=== PATIENT | male | born 1995 | race Caucasian/White ===

== ENCOUNTER 2017-03-24 00:54 | Observation (INO) | payer OTHER ==
[~2017-03-24] VITALS: Ht 172.7 cm; Wt 79.1 kg
[2017-03-24] VITALS (15 sets, daily range): BP systolic 88–159; BP diastolic 48–81
--- NOTE | 2017-03-24 01:27 | Emergency Room Report ---
History of Present Illness Time Seen by MD Park Presenting Problem in Triage Pt arrived:Walked Presenting Problem:WAS SEEN [facility] GISEL SAW PATIENT AND INFORMED PT HE SHOULD BE ADMITTED. 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 N Clinical Suspician of Infection? N Mental Status: 1 - Regular (Normal Baseline) Sepsis Risk:Low Sepsis Risk Have you (or family members/close friends) recently traveled outside the [place]? N If Yes, where/when: Have you had exposure to infectious disease within the past month? N TB? Other? Specify: Comment The patient was seen here earlier [facility] for possible appendicitis. He had 2 CT scans suggesting a possible appendicitis of the tip of the appendix. He was seen in the emergency room by Dr. Lockett, surgeon military source operations officer. Admission was recommended, but the patient declined. He was advised to return in the morning for repeat evaluation, sooner if worsening. He has now returned because he is having increasing pain and had an episode of vomiting. He also has some chills. ALLERGIES Coded Allergies: No Known Allergies (03/23/17) Home Medications Reported Medications No Known Home Medications History Medical History General CAD? No Angina: No ME: No Hypertension? No Hyperlipidemia? No CHF? No DVT? No PE? No COPD? No Asthma? No Anemia? No GERD? No Gastric ulcers? No GI Bleed? No Hernia? No Thyroid Problems? No Hypothyroidism? No CVA? No Seizures? No Diabetes? No Renal Insuffiency? Yes End Stage Renal Disease? No UTI? Yes Stones? No BPH? No GB Disease: No Nephritic Syndrome? No Asplenia? No Hepatitis? Yes Sickle Cell Disease? No Arthritis? No Migraines? No Cataracts? No Glaucoma? No MRSA? No HIV? No TB? No Anxiety? No Depression? No Cancer? No More? No Immunization Hx DT/Tetanus 1-4 Years Ago Surgical Hx Previous Surgery?Y RIGHT LOWER LEG RIGHT HAND Social History Smoking Hx Smoker: Current Every Day Smoker Tobacco: Yes Type Cigarettes Packs/day 1 1/2 - 2 Packs Alcohol Alcohol: No Review of Systems All Other Systems Reviewed and Negative Constitutional chills Gastrointestinal abdominal pain, vomiting Physical Exam Vital Signs Vital Signs Date Time Temp Pulse Resp B/P Pulse O2 O2 Flow FiO2 Ox Delivery Rate 03/24 0153 98.8 115 16 137/71 99 03/24 0137 115 16 137/71 99 03/24 0134 16 03/24 0057 98.8 124 16 159/81 99 General Appearance normal appearance, WD/WN Eye Exam - bilateral eye normal exam, bilateral eye PERRL, bilateral eye EOMI Ear, Nose, Throat hearing grossly normal, normal ENT inspection Neck normal inspection, non-tender, supple, full range of motion Respiratory Status Yes: trachea midline, chest symmetrical, non tender chest. No: respiratory distress. Lung Sounds bilateral: normal breath sounds, lungs clear. Cardiovascular normal exam, regular rate/rhythm, no peripheral edema, no gallop, no JVD, no murmur, no rub, normal peripheral pulses Peripheral Pulses Pulses normal Yes Gastrointestinal soft, no organomegaly, guarding, rebound, right-sided abdominal tenderness, the point of maximal tenderness is RIGHT lower quadrant over McBurney's point. Extremities non-tender, normal range of motion, normal inspection Neurologic alert, electrical development engineer II-XII nml as tested, normal exam, oriented x 3 Mental status normal mood/affect Skin intact, normal color, warm/dry Medical Decision Making LABS/Meds/Orders Pt receiving controlled substance in ED? Yes Nick was queried for this patient? No Reason not queried - emergent pt cond=no time Results/Orders Laboratory Tests 03/24/17 0115: WBC 15.6 H, RBC 5.08, Hgb 15.8, Hct 46.9, MCV 92.3, RDW 12.8, Plt Count 236, MPV 6.6 L, Gran % 85.2 H, Gran # 13.3 H, Lymphocytes % 10.0, Monocytes % 2.6, Eosinophils % 2.0, Basophils % 0.3, Lymphocytes # 1.6, Monocytes # 0.4, Eosinophils # 0.3, Basophils # 0.0, PUBS MCHC 33.6, MCH 31.0 Current Medication Orders Sig/Remberto Start time Last Medication Dose Route Stop Time Status Admin Morphine Sulfate 2 MG Q2HP PRN 03/24 0145 UNV IV Nicotine 21 MG DAILYP PRN 03/24 0145 UNV TD Ondansetron HCl 4 MG Q6HP PRN 03/24 0145 UNV IV Sodium Chloride 1,000 ML .Q6H40M 03/24 0145 UNV 03/24 IV 0222 Sodium Chloride 10 ML PRN PRN 03/24 0145 UNV IV Morphine Sulfate 0 .STK-MED ONE 03/24 0132 DC .ROUTE Morphine Sulfate 4 MG ONCE ONE 03/24 0130 DC 03/24 IV 03/24 0131 0134 Ondansetron HCl 4 MG ONCE ONE 03/24 0115 DC 03/24 IV 03/24 0116 0116 Sodium Chloride 1,000 ML .Q6H40M 03/24 0115 AC 03/24 IV 03/24 1304 0116 Sodium Chloride 10 ML PRN PRN 03/24 0115 AC 03/24 IV 03/25 0104 0117 Ondansetron HCl 0 .STK-MED ONE 03/24 0104 DC .ROUTE Sodium Chloride 1,000 ML .STK-MED ONE 03/24 0103 DC IV Orders Procedure Date/time Status DIET-NOTHING BY MOUTH 03/24 B Active Decision to admit 03/24 133 Active IV SALINE LOCK 03/24 010 Active CBC WITH AUTO DIFF 03/24 102 Complete ADMIT PATIENT 03/24 UNK Active VITAL SIGNS 03/24 UNK Active POM NURSE PARAMJIT HOSE ORDER 03/24 UNK Active IV SALINE LOCK 03/24 UNK Active CODE STATUS 03/24 UNK Active PATIENT ACTIVITY ORDER 03/24 UNK Active Progress - 1:30 AM: I have discussed the case with Dr. Lockett who agrees to admit the patient to the hospital. We discussed the patient's clinical information, including history, exam, laboratory and radiology results and ED course. Per hospital procedure, I will write temporary bridge inpatient orders on the patient. Specific orders requested by the admitting physician: ISMAEL RAPHAEL. He will see patient about 7 am. Departure Departure Disposition Still a Patient Clinical Impression Primary Impression: Acute appendicitis Qualifiers: Acute appendicitis type: with localized peritonitis Qualified Code: K35.3 - Acute appendicitis with localized peritonitis Condition STABLE Prescriptions Current Visit Scripts No Known Home Medications ED Critical Care Critical Care No at 0408
--- NOTE | 2017-03-24 01:27 | Emergency Room Report ---
History of Present Illness Time Seen by MD Park Presenting Problem in Triage Pt arrived:Walked Presenting Problem:[facility] GISEL SAW PATIENT AND INFORMED PT HE SHOULD BE ADMITTED. 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 N Clinical Suspician of Infection? N Mental Status: 1 - Regular (Normal Baseline) Sepsis Risk:Low Sepsis Risk Have you (or family members/close friends) recently traveled outside the [place]? N If Yes, where/when: Have you had exposure to infectious disease within the past month? N TB? Other? Specify: Comment The patient was seen here earlier [facility] for possible appendicitis. He had 2 CT scans suggesting a possible appendicitis of the tip of the appendix. He was seen in the emergency room by Dr. Lockett, surgeon mission manager. Admission was recommended, but the patient declined. He was advised to return in the morning for repeat evaluation, sooner if worsening. He has now returned because he is having increasing pain and had an episode of vomiting. He also has some chills. ALLERGIES Coded Allergies: No Known Allergies (03/23/17) Home Medications Reported Medications No Known Home Medications History Medical History General CAD? No Angina: No NM: No Hypertension? No Hyperlipidemia? No CHF? No DVT? No PE? No COPD? No Asthma? No Anemia? No GERD? No Gastric ulcers? No GI Bleed? No Hernia? No Thyroid Problems? No Hypothyroidism? No CVA? No Seizures? No Diabetes? No Renal Insuffiency? Yes End Stage Renal Disease? No UTI? Yes Stones? No BPH? No GB Disease: No Nephritic Syndrome? No Asplenia? No Hepatitis? Yes Sickle Cell Disease? No Arthritis? No Migraines? No Cataracts? No Glaucoma? No MRSA? No HIV? No TB? No Anxiety? No Depression? No Cancer? No More? No Immunization Hx DT/Tetanus 1-4 Years Ago Surgical Hx Previous Surgery?Y RIGHT LOWER LEG RIGHT HAND Social History Smoking Hx Smoker: Current Every Day Smoker Tobacco: Yes Type Cigarettes Packs/day 1 1/2 - 2 Packs Alcohol Alcohol: No Review of Systems All Other Systems Reviewed and Negative Constitutional chills Gastrointestinal abdominal pain, vomiting Physical Exam Vital Signs Vital Signs Date Time Temp Pulse Resp B/P Pulse O2 O2 Flow FiO2 Ox Delivery Rate 03/24 0153 98.8 115 16 137/71 99 03/24 0137 115 16 137/71 99 03/24 0134 16 03/24 0057 98.8 124 16 159/81 99 General Appearance normal appearance, WD/WN Eye Exam - bilateral eye normal exam, bilateral eye PERRL, bilateral eye EOMI Ear, Nose, Throat hearing grossly normal, normal ENT inspection Neck normal inspection, non-tender, supple, full range of motion Respiratory Status Yes: trachea midline, chest symmetrical, non tender chest. No: respiratory distress. Lung Sounds bilateral: normal breath sounds, lungs clear. Cardiovascular normal exam, regular rate/rhythm, no peripheral edema, no gallop, no JVD, no murmur, no rub, normal peripheral pulses Peripheral Pulses Pulses normal Yes Gastrointestinal soft, no organomegaly, guarding, rebound, right-sided abdominal tenderness, the point of maximal tenderness is RIGHT lower quadrant over McBurney's point. Extremities non-tender, normal range of motion, normal inspection Neurologic alert, steel erector II-XII nml as tested, normal exam, oriented x 3 Mental status normal mood/affect Skin intact, normal color, warm/dry Medical Decision Making LABS/Meds/Orders Pt receiving controlled substance in ED? Yes Nick was queried for this patient? No Reason not queried - emergent pt cond=no time Results/Orders Laboratory Tests 03/24/17 0115: WBC 15.6 H, RBC 5.08, Hgb 15.8, Hct 46.9, MCV 92.3, RDW 12.8, Plt Count 236, MPV 6.6 L, Gran % 85.2 H, Gran # 13.3 H, Lymphocytes % 10.0, Monocytes % 2.6, Eosinophils % 2.0, Basophils % 0.3, Lymphocytes # 1.6, Monocytes # 0.4, Eosinophils # 0.3, Basophils # 0.0, PUBS MCHC 33.6, MCH 31.0 Current Medication Orders Sig/Remberto Start time Last Medication Dose Route Stop Time Status Admin Morphine Sulfate 2 MG Q2HP PRN 03/24 0145 UNV IV Nicotine 21 MG DAILYP PRN 03/24 0145 UNV TD Ondansetron HCl 4 MG Q6HP PRN 03/24 0145 UNV IV Sodium Chloride 1,000 ML .Q6H40M 03/24 0145 UNV 03/24 IV 0222 Sodium Chloride 10 ML PRN PRN 03/24 0145 UNV IV Morphine Sulfate 0 .STK-MED ONE 03/24 0132 DC .ROUTE Morphine Sulfate 4 MG ONCE ONE 03/24 0130 DC 03/24 IV 03/24 0131 0134 Ondansetron HCl 4 MG ONCE ONE 03/24 0115 DC 03/24 IV 03/24 0116 0116 Sodium Chloride 1,000 ML .Q6H40M 03/24 0115 AC 03/24 IV 03/24 1304 0116 Sodium Chloride 10 ML PRN PRN 03/24 0115 AC 03/24 IV 03/25 0104 0117 Ondansetron HCl 0 .STK-MED ONE 03/24 0104 DC .ROUTE Sodium Chloride 1,000 ML .STK-MED ONE 03/24 0103 DC IV Orders Procedure Date/time Status DIET-NOTHING BY MOUTH 03/24 B Active Decision to admit 03/24 133 Active IV SALINE LOCK 03/24 010 Active CBC WITH AUTO DIFF 03/24 102 Complete ADMIT PATIENT 03/24 UNK Active VITAL SIGNS 03/24 UNK Active POM NURSE PARAMJIT HOSE ORDER 03/24 UNK Active IV SALINE LOCK 03/24 UNK Active CODE STATUS 03/24 UNK Active PATIENT ACTIVITY ORDER 03/24 UNK Active Progress - 1:30 AM: I have discussed the case with Dr. Lockett who agrees to admit the patient to the hospital. We discussed the patient's clinical information, including history, exam, laboratory and radiology results and ED course. Per hospital procedure, I will write temporary bridge inpatient orders on the patient. Specific orders requested by the admitting physician: ISMAEL RAPHAEL. He will see patient about 7 am. Departure Departure Disposition Still a Patient Clinical Impression Primary Impression: Acute appendicitis Qualifiers: Acute appendicitis type: with localized peritonitis Qualified Code: K35.3 - Acute appendicitis with localized peritonitis Condition STABLE Prescriptions Current Visit Scripts No Known Home Medications ED Critical Care Critical Care No at 0402
[2017-03-24 01:30] LABS: HEMOGLOBIN 15.8 g/dL (14.1-18.0); LYMPH # 1.6 K/mm3 (0.7-4.5)
--- NOTE | 2017-03-24 06:54 | HISTORY AND PHYSICAL REPORT ---
History of Present Illness Chief Complaint: Abdominal pain History of Present Illness: Patient is a 21-year-old white male. He yesterday morning about 7 AM he developed RIGHT flank pain reading into the RIGHT testicle. This hadn't somewhat concerned and in the afternoon yesterday on 03/23/17 he presented to the emergency department. He did have a mild leukocytosis. He underwent non-contrast CT scan of the abdomen and pelvis which revealed no evidence of appendicitis but appendix was difficult to identify. He therefore underwent contrast CT scan which revealed no definitive evidence of appendicitis but tip appendicitis cannot be excluded. He was evaluated as a surgical consultation. Recommendations were made for admission for observation however the patient declined to return if worsening overnight and agreed to definitely return the following morning even if improvement for reevaluation. However, he developed progressive more severe RIGHT lower quadrant pain and presented to the emergency department in the very late evening of 03/23/17. Past Medical History Denies: asthma. Surgical History Previous Surgery?Y RIGHT LOWER LEG RIGHT HAND Allergies Coded Allergies: No Known Allergies (03/23/17) Medications: Reported Medications No Known Home Medications Smoking Hx Tobacco: Yes Smoker: Current Every Day Smoker Type: Cigarettes Packs/day: 1 1/2 - 2 Packs Are you/the child exposed to second-hand smoke: Yes Alcohol Alcohol: No Hx of Drug Use Drug Use? No Review of Systems Constitutional No: chills. Skin No: bruising. Immune/allergy No: anaphalaxis. Eyes No: vision loss. ENT No: hearing loss. Respiratory No: shortness of air. Cardiovascular No: chest pain. GI Positive for: abdomen. (male) No: hematuria. Musculoskeletal No: joint pain. Heme No: bleeding. Endocrine No: polydipsia. Neurological No: change in LOC. Physical Exam Exam General appearance no acute distress Respiratory clear to auscultation Cardiovascular normal heart sounds Abdomen soft Findings/Data On examination the patient appears much more uncomfortable than last night. He has significantly more pain with tenderness and findings of focal peritonitis in the RIGHT lower quadrant which is clearly different and progressive from previous examination Dx/assessment/plan Problem List 1. Acute appendicitis Code status: full code Plan: Plan for urgent appendectomy this morning. Plan for laparoscopic with possible open procedure. at 0608
--- NOTE | 2017-03-24 08:35 | Operative Note ---
Surgeon/Diagnoses Surgeon/Director Of Digital Technology(s) Date of procedure: 03/24/17 Surgeon: Gregor Lockett Director Of Digital Technology(s): Same Diagnoses Pre-op diagnosis: Acute appendicitis Post-op diagnosis Same Procedure Procedure Procedure: Laparoscopic appendectomy Indications: VALDO TEIXEIRA is a 21 year-old Male with a history of pain. Yesterday morning on 03/23/17 he developed RIGHT flank pain radiating into the testicular area. He presented to the emergency department in the late afternoon of 03/23/17. CT scan without contrast was nondiagnostic. He underwent CT scan of the abdomen and pelvis with contrast. This remained equivocal. Surgical consultation was obtained. Examination and presentation were somewhat equivocal. It was recommended the patient be admitted for inpatient management however he declined with instructions clearly to return if his symptoms worsened and regardless to return for reevaluation the following morning. Several hours later his symptoms had worsened with increasing pain and tenderness in the RIGHT lower quadrant and he resented to the emergency department which time he was admitted. Plan was made for appendectomy. Findings: He had somewhat of a suppurative inflamed appendix mostly at the tip of the appendix. The appendix was somewhat buried almost like an intussusception within the cecum. Procedure Description: Consent was obtained and patient was taken to the operating room. He was given preoperative intravenous antibiotics. Gen. anesthesia was induced via endotracheal tube. Key catheter was placed for bladder decompression. Abdomen was prepped and draped in the standard surgical fashion. Subumbilical skin incision was made and while performing abdominal wall lifted the Veress needle was inserted. CO2 pneumoperitoneum was achieved to 15 mmHg. 5 mm trocar was inserted in the suprapubic location and an additional 5 mm trochars inserted in the RIGHT upper abdomen. He was positioned in Trendelenburg LEFT side down. There was some suppurative exudate around the tip of the cecum. Closure was achieved to sweeping the ileum medially. There was some indurated tissue. Ultimately was determined that this was the tip of the appendix and this was grasped. It almost had the resemblance that the appendix had intussuscepted into the cecum. It was able to be delivered and ultimately dissected free. The appendiceal artery was carefully coagulated with Marcelo ultrasonic harmonic kyra and divided. Dissection was carried down to the appendiceal base with some difficulty. The appendix was divided at its with an endoscopic RAMÍREZ linear cutting type stapling device. Appendix was placed within an Endo Catch retrieval device and removed from the peritoneal cavity via the umbilical trocar site. Staple line was inspected for integrity and hemostasis which was assured. Limited interrogation was performed in the pericecal location and pelvis. There was good hemostasis. Trochars were removed as CO2 pneumoperitoneum was evacuated. Fascia at the umbilicus was closed with a 0 Vicryl suture. Local anesthetic was infiltrated into all incisions. Skin incisions were closed with 4 -0 Monocryl in a subcuticular fashion. Steri-Strips and dressings were applied. EBL (ml): 25 Anesthesia: GETA Specimens: Appendix Disposition Disposition: Extubated to PACU at 0834
--- NOTE | 2017-03-24 08:43 | Anesthesia Record ---
Anesthesia Record Part I Total IV fluids: 900 EBL (ml): 50 Urine Output: 300 B/P: 118/68 % SaO2: 96 Pulse: 123 Resps: 24 Temp: 98.3 Patient is: Drowsy, Nasal O2, Stable Stable to PACU at: 0833 at 0843
--- NOTE | 2017-03-24 08:44 | Anesthesia Record ---
Anesthesia Record Part II Discharge time: 902 Destination: Second Floor PACU nurse assessment review? Yes Patient is: Awake, Stable Anesthesia complications? No at 0843
--- NOTE | 2017-03-24 10:59 | POST-OP PROGRESS NOTE ---
Post op subjective data Subjective data: VALDO TEIXEIRA is a 21 M . He is status post post op day # . His wound is healing well without signs symptoms of infection.He reports his last pain level as 0 on a 0-10 pain scale. Patient tolerating some clears without difficulty. Had some minor hematuria with initial void which resolved. Shortly after arriving to floor patient requested going outside. Post op assessment findings Assessment Exam General appearance: normal appearance, alert ABD: soft Comment: Some serosanguineous drainage on umbilical dressing. Post op patient plan Plan: Ambulate, Antibiotics This inpt stay is expected to cross 2 MNs from start of care No Additional data: Changed steri-strips and dressing at umbilical site. Will continue antibiotics perioperatively for now. Possible DC home this afternoon or in the morning. at 1059
--- NOTE | 2017-03-24 11:03 | PHARMACY CLINIC NOTE ---
Patient Demographics Patient Demographics Admission date: 03/24/17 Date: 03/24/17 Allergies Coded Allergies: No Known Allergies (03/24/17) HEIGHT- FT: 5 IN: 8.00 K.068 VTE General Information Labs: Laboratory Tests 03/24 0115 Hematology Hgb (14.1 - 18.0 g/dL) 15.8 Hct (42.0 - 52.0 %) 46.9 Plt Count (142 - 424 K/mm3) 236 Disclaimer The following section includes nursing documentation that has been pulled in for pharmacy review. Patient's VTE score: 2 Patient's VTE Risk: VERY LOW RISK Clinical trial participant? No VTE prophylaxis [id number] VTE prophylaxis ordered? Yes Type of prophylaxis/treatment: PARAMJIT at 4909
[2017-03-24 12:04] LABS: URINE BILIRUBIN - DIPSTICK NEGATIVE (NEG); URINE BLOOD NEGATIVE (NEG)
[2017-03-24 12:13] LABS: URINE SQUAMOUS CELLS OCC #/hpf (OCC)
--- NOTE | 2017-03-25 11:09 | DISCHARGE SUMMARY STANDARD ---
Demographics Admit date: 03/24/17 Discharge date: 03/24/17 History of present illness History of present illness Patient is a 21-year-old white male. In the morning of 03/23/17 about 7 AM he developed RIGHT flank pain radiating into the RIGHT testicle. This had him somewhat concerned and in the afternoon on 03/23/17 he presented to the emergency department. He did have a mild leukocytosis. He underwent CT scan of the abdomen and pelvis without any contrast whatsoever which revealed no evidence of appendicitis but appendix was difficult to identify. He therefore underwent contrast CT scan with which revealed no definitive evidence of appendicitis but tip appendicitis cannot be excluded. He was evaluated as a surgical consultation in the ER. Since his radiographic findings and clinical examination were somewhat equivocal for appendicitis recommendations were made for admission for observation however the patient declined admission. Instructions were given to return if worsening overnight and he agreed to definitely return the following morning even if improvement for reevaluation. However, he developed progressive more severe RIGHT lower quadrant pain and presented to the emergency department in the very primary counselor of 03/24/17. Hospital Course Hospital Course: Patient was admitted with presumed developing appendicitis due to progressively more severe tenderness in the RIGHT lower quadrant. Several hours after admission the patient was taken to the operating room at which time he underwent laparoscopic appendectomy. He was found to have an acutely inflamed appendix which was somewhat buried within the cecum. Please see operative dictation for complete details. Patient was given Unasyn preoperatively and this was continued postoperatively. Very shortly after admission to the floor patient was requesting being able to go outside allegedly to smoke. He was advised against this. He was given full liquid diet. Patient was observed for several hours and given additional postoperative antibiotics. He did quite well and arrangements were made for discharge home several hours after appendectomy. Discharge diagnoses Problem List 1. Acute appendicitis Medications Medications: Discharge meds are as noted. Patient is given a new prescription for Lortab 5 mg (#16) for pain. Follow up Follow up in office in: 2 WEEKS with: Gregor Lockett MD at 1111
--- OUTSIDE RECORDS SUMMARY | 2017-04-02 19:25 | External Medical Summary Rpt ---
Author Author , Organization [employer] Address Unknown Phone Unavailable Purpose Continuity of Care Document - through 2016 Problems Code Diagnosis DOS Provider Status D72.829 ELEVATED WHITE BLOOD CELL COUNT, UNSPECIFIED K35.80 UNSPECIFIED ACUTE APPENDICITI S R10.31 RIGHT LOWER QUADRANT PAIN R93.5 ABN FINDINGS ON DX IMAGING OF [facility] [employer] RETROPERITO N
--- OUTSIDE RECORDS SUMMARY | 2017-04-02 19:25 | External Medical Summary Rpt ---
Demographics Preferred Language Kuwaiti Marital Status Unknown Spiritism Affiliation Unknown Race Unknown Ethnic Group Unknown Author Author , Organization [employer] Address Unknown Phone Unavailable Purpose Continuity of Care Document - through 2016 Immunization No patient found.
--- OUTSIDE RECORDS SUMMARY | 2017-04-02 19:25 | External Medical Summary Rpt ---
Demographics Preferred Language Lao Marital Status Unknown Islam Affiliation Unknown Race Unknown Ethnic Group Unknown Author Author , Organization [facility] Address Unknown Phone Unavailable Purpose Continuity of Care Document - through 2016 Immunization No patient found.
--- OUTSIDE RECORDS SUMMARY | 2017-04-02 19:26 | External Medical Summary Rpt ---
Author Author [employer] [employer], [employer] Organization [employer] Address Unknown Phone Unavailable Results CBC W Auto Differential panel in Blood Observa Value Referen Units Interpr Notes Date tion ce etation Range Basophils 0 - 0.2 K/MM3 Normal No March 24 informati 2016 1:15 [#/volume on in AM ] in source Blood by data Automated count Basophils 0.1 - 2.0 % Normal No March 24 informati 2016 1:15 leukocyte on in AM s in source Blood by data Automated count Eosinophi 0.0 - 0.4 K/mm3 Normal No March 24 ls informati 2016 1:15 [#/volume on in AM ] in source Blood by data Automated count Eosinophi 0.1 - % Normal No March 24 ls/100 12.0 informati 2016 1:15 leukocyte on in AM s in source Blood by data Automated count Granulocy 1.3 - 8.0 K/mm3 High No March 24 ron informati 2016 1:15 [#/volume on in AM ] in source Blood by data Automated count Granulocy 37.0 - % High No March 24 ron/100 80.0 informati 2016 1:15 leukocyte on in AM s in source Blood by data Automated count Hematocri 42.0 - % Normal No March 24 t [Volume 52.0 informati 2016 1:15 on in AM Fraction] source of Blood data Hemoglobi 14.1 - g/dL Normal No March 24 n 18.0 informati 2016 1:15 [Mass/vol on in AM ume] in source Blood data Lymphocyt 0.7 - 4.5 K/mm3 Normal No March 24 es informati 2016 1:15 [#/volume on in AM ] in source Unspecifi data ed specimen by Automated count Lymphocyt 10 - 50 % Normal No March 24 es informati 2016 1:15 [#/volume on in AM ] in source Unspecifi data ed specimen by Automated count Erythrocy 27 - 31.2 pg Normal No March 24 te mean informati 2016 1:15 corpuscul on in AM ar source hemoglobi data n [Entitic mass] Erythrocy 31.8 - g/dl Normal No March 24 te mean 35.4 informati 2016 1:15 corpuscul on in AM ar source hemoglobi data n concentra tion [Mass/vol ume] by Automated count Erythrocy 82.2 - fl Normal No March 24 te mean 97.8 informati 2016 1:15 corpuscul on in AM ar volume source [Entitic data volume] by Automated count Monocytes 0.1 - 1.0 K/mm3 Normal No March 24 informati 2016 1:15 [#/volume on in AM ] in source Blood by data Automated count Monocytes 1.7 - 9.3 % Normal No March 24 / informati 2016 1:15 leukocyte on in AM s in source Blood by data Automated count Platelet 7.4 - fl Low No March 24 mean 10.4 informati 2016 1:15 volume on in AM [Entitic source volume] data in Blood by Automated count Platelets 142 - 424 K/mm3 Normal No March 24 informati 2016 1:15 [#/volume on in AM ] in source Blood data Erythrocy 4.6 - 6.2 M/mm3 Normal No March 24 ron informati 2016 1:15 [#/volume on in AM ] in source Amniotic data fluid Erythrocy 11.5 - % Normal No March 24 te 17.5 informati 2016 1:15 distribut on in AM ion width source [Entitic data volume] by Automated count Leukocyte 4.8 - K/MM3 High No March 24 s 10.8 informati 2016 1:15 [#/volume on in AM ] in source Blood data CBC W Auto Differential panel in Blood Observa Value Referen Units Interpr Notes Date tion ce etation Range Basophils 0 - 0.2 K/MM3 Normal No March 23 informati 2016 3:55 [#/volume on in PM ] in source Blood by data Automated count Basophils 0.1 - 2.0 % Normal No March 23 informati 2016 3:55 leukocyte on in PM s in source Blood by data Automated count Eosinophi 0.0 - 0.4 K/mm3 Normal No March 23 ls informati 2016 3:55 [#/volume on in PM ] in source Blood by data Automated count Eosinophi 0.1 - % Normal No March 23 ls/100 12.0 informati 2016 3:55 leukocyte on in PM s in source Blood by data Automated count Granulocy 1.3 - 8.0 K/mm3 High No March 23 ron informati 2016 3:55 [#/volume on in PM ] in source Blood by data Automated count Granulocy 37.0 - % High No March 23 ron/100 80.0 informati 2016 3:55 leukocyte on in PM s in source Blood by data Automated count Hematocri 42.0 - % Normal No March 23 t [Volume 52.0 informati 2016 3:55 on in PM Fraction] source of Blood data Hemoglobi 14.1 - g/dL Normal No March 23 n 18.0 informati 2016 3:55 [Mass/vol on in PM ume] in source Blood data Lymphocyt 0.7 - 4.5 K/mm3 Normal March 23 es informati 2016 3:55 [#/volume on in PM ] in source Unspecifi data ed specimen by Automated count Lymphocyt 10 - 50 % Low March 23 es informati 2016 3:55 [#/volume on in PM ] in source Unspecifi data ed specimen by Automated count Erythrocy 27 - 31.2 pg High No March 23 te mean informati 2016 3:55 corpuscul on in PM ar source hemoglobi data n [Entitic mass] Erythrocy 31.8 - g/dl Normal March 23 te mean 35.4 informati 2016 3:55 corpuscul on in PM ar source hemoglobi data n concentra tion [Mass/vol ume] by Automated count Erythrocy 82.2 - fl Normal March 23 te mean 97.8 informati 2016 3:55 corpuscul on in PM ar volume source [Entitic data volume] by Automated count Monocytes 0.1 - 1.0 K/mm3 Normal No March 23 informati 2016 3:55 [#/volume on in PM ] in source Blood by data Automated count Monocytes 1.7 - 9.3 % Normal No March 23 / informati 2016 3:55 leukocyte on in PM s in source Blood by data Automated count Platelet 7.4 - fl Low March 23 mean 10.4 informati 2016 3:55 volume on in PM [Entitic source volume] data in Blood by Automated count Platelets 142 - 424 K/mm3 Normal March 23 informati 2016 3:55 [#/volume on in PM ] in source Blood data Erythrocy 4.6 - 6.2 M/mm3 Normal No March 23 ron informati 2016 3:55 [#/volume on in PM ] in source Amniotic data fluid Erythrocy 11.5 - % Normal No March 23 te 17.5 informati 2016 3:55 distribut on in PM ion width source [Entitic data volume] by Automated count Leukocyte 4.8 - K/MM3 High No March 23 s 10.8 informati 2016 3:55 [#/volume on in PM ] in source Blood data Differential panel, method unspecified - Observa Value Referen Units Interpr Notes Date tion ce etation Range LYMPH 10 10 - 50 % Normal No March 23 inform2016 tion in 3:55 PM source data Monocytes 2 - 9 % Normal No March 23 /100 informati 2016 3:55 leukocyte on in PM s in source Blood by data Automated count Platele NORMAL No No No No March 23 ts informa informa informa informa 2016 [Presen tion in tion in tion in tion in 3:55 PM ce] in source source source source Blood data data data data by Light microsc opy Neutrophi 42 - 76 % High No March 23 ls ati 2016 3:55 [#/volume on in PM ] in source Blood by data Automated count Erythro NORMAL No No No No March 23 cyte informa informa informa informa 2016 morphol tion in tion in tion in tion in 3:55 PM ogy source source source source finding data data data data [Identi fier] in Blood Cells No #CELLS No No March 23 Counted informati informati informati 2016 3:55 Total [#] on in on in on in PM in Blood source source source data data data Comprehensive metabolic 2000 panel in Serum or Plasma Observa Value Referen Units Interpr Notes Date ti ce etation Range Albumin/G 1.1 - 1.8 No Normal No March 23 lobulin informati informati 2016 3:55 [Mass on in on in PM ratio] in source source Serum or data data Plasma Albumin 3.4 - 5.0 gm/dL Normal No March 23 [Mass/vol informati 2016 3:55 ume] in on in PM Serum or source Plasma data Alkaline 46 - 116 U/L Normal No March 23 phosphata informati 2016 3:55 se on in PM [Enzymati source c data activity/ volume] in Serum or Plasma Bilirubin 0.2 - 1.0 mg/dL Normal No March 23 .total informati 2016 3:55 [Mass/vol on in PM ume] in source Serum or data Plasma Urea 7 - 18 mg/dL Normal No March 23 nitrogen informati 2016 3:55 [Mass/vol on in PM ume] in source Serum or data Plasma Calcium 8.5 - mg/dL Normal No March 23 [Mass/vol 10.1 informati 2016 3:55 ume] in on in PM Serum or source Plasma data Chloride 98 - 107 mmoL/L Normal No March 23 [Moles/vo informati 2016 3:55 lume] in on in PM Serum or source Plasma data Carbon 21.0 - mmoL/L Normal No March 23 dioxide, 32.0 informati 2016 3:55 total on in PM [Moles/vo source lume] in data Serum or Plasma Creatinin 0.70 - mg/dL Normal No March 23 e 1.30 informati 2016 3:55 [Mass/vol on in PM ume] in source Serum or data Plasma Creatinin 50 - 200 ML/MIN Normal No March 23 e renal informati 2016 3:55 clearance on in PM source predicted data by Cockcroft -Gault formula Estimated >60 ML/MIN No REFERENCE March 23 informati RANGE: 2017 3:55 glomerula on in >60 PM r source ML/MIN/1. filtratio data 73 SQUARE n rate METERSIf (GF this patient is -A merican, then multiply theresult by 1.210. Globulin 1.3 - 3.2 gm/dL High No March 23 [Mass/vol informati 2016 3:55 ume] in on in PM Serum source data Glucose 74 - 106 mg/dL Normal No March 23 [Mass/vol informati 2016 3:55 ume] in on in PM Serum or source Plasma data Potassium 3.5 - 5.1 mmoL/L Normal No March 23 informati 2016 3:55 [Moles/vo on in PM lume] in source Serum or data Plasma Sodium 136 - 145 mmoL/L Normal No March 23 [Moles/vo informati 2016 3:55 lume] in on in PM Serum or source Plasma data Aspartate 15 - 37 U/L Normal No March 23 informati 2016 3:55 aminotran on in PM sferase source [Enzymati data c activity/ volume] in Serum or Plasma Alanine 12 - 78 U/L Normal No March 23 aminotran informati 2016 3:55 sferase on in PM [Enzymati source c data activity/ volume] in Serum or Plasma Protein 6.4 - 8.2 gm/dL High No March 23 [Mass/vol informati 2016 3:55 ume] in on in PM Serum or source Plasma data Chlamydia/GC Amplification Observa Value Referen Units Interpr Notes Date tion ce etation Range Chlamyd Positiv Negativ No Abnorma March 23 ia e e informa l 2017 trachom tion in 3:50 PM atis source rRNA data [Presen ce] in Unspeci fied specime n by Probe & target amplifi cation method Neisser Negativ Negativ No No Perform March 23 ia e e informa informa ed at: 2017 gonorrh tion in tion in CB - 3:50 PM oeae source source [facility] rRNA data data [Presen [place]6 ce] in [address], specime [place], [place] Probe & [id number] target 69Lab Directo amplifi r: cation Vincent method Kenneth cohen PhD, Phone: [phone] Urinalysis dipstick W Reflex Microscopic panel in Urine Observa Value Referen Units Interpr Notes Date tion ce etation Range Appeara CLEAR CLEAR No No No March 23 nce of informa informa informa 2016 Urine tion in tion in tion in 3:50 PM source source source data data data Bacteri 2+ O No No No March 23 a informa informa informa 2016 [Presen tion in tion in tion in 3:50 PM ce] in source source source Urine data data data sedimen t by Light microsc opy Bilirub NEGATIV NEG No No BILIRUB March 23 in E informa informa IN 2016 [Presen tion in tion in CONFIRM 3:50 PM ce] in source source ED WITH Urine data data by Test ICTOTES strip T Erythro NEGATIV NEG No No No March 23 cytes E informa informa informa 2016 [Presen tion in tion in tion in 3:50 PM ce] in source source source Urine data data data Color DK YELLOW No No No March 23 of YELLOW informa informa informa 2017 Urine tion in tion in tion in 3:50 PM source source source data data data Glucose NEG No No No March 23 [Mass/vol informati informati informati 2016 3:50 ume] in on in on in on in PM Urine by source source source Test data data data strip Ketones 2+ NEG mg/dL Abnorma No March 23 l inform2016 [Presen tion in 3:50 PM ce] in source Urine data by Automat ed test strip Mucus NEGATIV NEG No No No March 23 [Presen E informa informa informa 2016 ce] in tion in tion in tion in 3:50 PM Urine source source source sedimen data data data t by Light microsc opy Mucus 4+ NONE No No No March 23 [Pres informa informa informa 2016 ce] in tion in ti in ti in 3:50 PM Urine source source source sedimen data data data t by Light microsc opy Nitrite NEGATIV NEG No No No March 23 E informa informa informa 2016 [Presen ti in ti in ti in 3:50 PM ce] in source source source Urine data data data by Test strip pH of 5.0 - 8.5 No Normal No March 23 Urine informati informati 2016 3:50 on in on in PM source source data data Protein NEG mg/dL High No March 23 [Mass/vol informati 2016 3:50 ume] in on in PM Urine by source Automated data test strip Specific 1.005 - No Normal No March 23 gravity 1.030 informati informati 2016 3:50 of Urine on in on in PM source source data data Urobili 1.0 NEG E.U./dL No No March 23 nogen informa informa 2016 [Presen tion in tion in 3:50 PM ce] in source source Urine data data by Test strip Leukocyte O wbc/hpf No No March 23 s informati informati 2016 3:50 [#/volume on in on in PM ] in source source Urine data data Urinalysis dipstick W Reflex Microscopic panel in Urine Observa Value Referen Units Interpr Notes Date tion ce etation Range Appeara CLEAR CLEAR No No No March 23 nce of informa informa informa 2016 Urine tion in ti in tion in 3:50 PM source source source data data data Bilirub NEGATIV NEG No No BILIRUB March 23 in E informa informa IN 2016 [Presen tion in tion in CONFIRM 3:50 PM ce] in source source ED WITH Urine data data by Test ICTOTES strip T Erythro NEGATIV NEG No No No March 23 cytes E informa informa informa 2016 [Presen tion in tion in tion in 3:50 PM ce] in source source source Urine data data data Color DK YELLOW No No No March 23 of YELLOW informa informa informa 2016 Urine tion in tion in tion in 3:50 PM source source source data data data Glucose NEG No No No March 23 [Mass/vol informati informati informati 2016 3:50 ume] in on in on in on in PM Urine by source source source Test data data data strip Ketones 2+ NEG mg/dL Abnorma No March 23 l informa 2016 [Presen tion in 3:50 PM ce] in source Urine data by Automat ed test strip Mucus NEGATIV NEG No No No March 23 [Presen E informa informa informa 2016 ce] in tion in tion in tion in 3:50 PM Urine source source source sedimen data data data t by Light microsc opy Nitrite NEGATIV NEG No No No March 23 E informa informa informa 2016 [Presen tion in tion in tion in 3:50 PM ce] in source source source Urine data data data by Test strip pH of 5.0 - 8.5 No Normal No March 23 Urine informati informati 2016 3:50 on in on in PM source source data data Protein NEG mg/dL High No March 23 [Mass/vol informati 2016 3:50 ume] in on in PM Urine by source Automated data test strip Specific 1.005 - No Normal No March 23 gravity 1.030 informati informati 2016 3:50 of Urine on in on in PM source source data data Urobili 1.0 NEG E.U./dL No No March 23 nogen informa informa 2016 [Presen tion in tion in 3:50 PM ce] in source source Urine data data by Test strip Treponema pallidum IgG Ab [Presence] in Serum by Immunoassay Observa Value Referen Units Interpr Notes Date tion ce etation Range COLLECT NA No No No No Apr 15 OR informa informa informa informa 2016 tion in tion in tion in tion in 8:00 AM source source source source data data data data ETHNICI W No No No No Feb 15 TY informa informa informa informa 2016 tion in tion in tion in tion in 8:00 AM source source source source data data data data PURPOSE ROUTINE No No No No Feb 15 OF informa informa informa informa 2016 EXAM tion in tion in tion in tion in 8:00 AM source source source source data data data data SPECIME BLOOD No No No No Feb 15 N informa informa informa informa 2016 SOURCE tion in tion in tion in tion in 8:00 AM source source source source data data data data CHART [id number] No No No No Feb 17 NUMBER informa informa informa informa 2016 tion in tion in tion in tion in 8:00 AM source source source source data data data data Trepone NON-STEPHANIE No No No METHOD Feb [address] informa informa informa OF 2016 pallidu tion in tion in tion in ANALYSI 8:00 AM m IgG source source source S: Ab data data data EIANORM [Presen AL ce] in RANGE: Serum NON-STEPHANIE by CTIVE\. Immunoa br\This ssay report contain s patient informa tion that must be protect ed in accorda nce with the Health Insuran ce Portabi lity and Account ability Act. Treponema pallidum IgG Ab [Presence] in Serum by Immunoassay Observa Value Referen Units Interpr Notes Date tion ce etation Range COLLECT NA No No No No Feb 17 OR informa informa informa informa 2016 tion in tion in tion in tion in 8:00 AM source source source source data data data data ETHNICI W No No No No Feb 17 TY informa informa informa informa 2016 tion in tion in tion in tion in 8:00 AM source source source source data data data data PURPOSE ROUTINE No No No No Feb 15 OF informa informa informa informa 2016 EXAM tion in tion in tion in tion in 8:00 AM source source source source data data data data SPECIME BLOOD No No No No Feb 15 N informa informa informa informa 2016 SOURCE tion in tion in tion in tion in 8:00 AM source source source source data data data data CHART [id number] No No No No Feb 17 NUMBER [place] informa informa informa 2016 tion in tion in tion in tion in 8:00 AM source source source source data data data data Trepone Pending No No No \.br\Feb 17 ma informa informa informa is 2016 pallidu tion in tion in tion in report 8:00 AM m IgG source source source contain Ab data data data s [Presen patient ce] in Serum informa by tion Immunoa that ssay must be protect ed in accorda nce with the Health Insuran ce Portabi lity and Account ability Act. CT LOWER EXTREMITY wo CONTRAST Observa Value Referen Units Interpr Notes Date tion ce etation Range TEXT MARINELLI No No No No Jul 12 DI[facility]NOS [place] informa informa informa informa 2015 IS L tion in tion in tion in tion in 10:15 [facility] source source source source PM LHardin data data data data [facility] RADIOLO GY REPORTP atient: Eliza TEIXEIRA NDREW W Acct: #[id number] Report: #[id number] #: [id number] DOS: 5 2044INS [facility] ORDER #:[id number] 48LOCAT ION:ER : 993PROV IDERSAD MITTING : FAMILY: NONE,MD BACHIN G: MEVRIN PANDYA AD OTHER:D ICTATIN G: RUFINO NEWMAN MDCPT CODE:[id number] EXAM:LE WO - CT LOWER EXTREMI TY wo CONTRAS TREQ #:[id number] ASON FOR EXAM:RE ASON FOR VISIT: BROKEN LEG--HAWKINS RDIN--1 905 Sign ed *PROCED URE: CT LOWER EXTREMI TY W/O CONTRAS TCOMPAR TA: [facility]I [facility], CR, KNEE 3 VIEWS RT, 07/12/20 15, 19:31.I NDICATI ONS: RIGHT KNEE FRACTUR E. RIGHT KNEE PAINTEC HNIQUE: After obtaini ng the patient 's consent , multi-p lanar CT images of the extremi ty werecre ated without non-ion ic intrave nous contras t.FINDI NGS:The re is a split fractur e of the lateral tibial plateau without signifi cant depress ion. Thefrac ture is classif ied as a Schatzk er type I fractur e. There is associa george fractur e without signifi cant displac ement of the anterio r aspect and the central portion of the medial tibialp lateau. There is a nondisp laced fibular head fractur e.There is hemorrh age within the joint with a fat-flu id level seen in the suprapa tella bursa. Thepost erior cruciat e ligamen t is well seen and appears to be intact. The anterio r cruciat e ligamen tis more difficu lt to evaluat e given the associa george hemarth rosis. There does not appear to beentra pment of the lateral meniscu s tissue within the fractur e.CONCL USION:1 . 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 No convinc ing lateral menisca l tissue is seen within the fractur e.1.HENRY NEWMAN MDElect cheryl garcia Signed and Approve d By: RUFINO NEWMAN MD on 07/12/20 15 at 22:15Bo kathi Certifi ed Radiolo gist.Un til signed, this is an unconfi rmed prelimi nary report that may contain errors and is subject to change. SERKE:D : 2215 TIBIA FIBULA AP LAT RIGHT Observa Value Referen Units Interpr Notes Date tion ce etation Range TEXT MARINELLI No No No No Sep 7 DIAGNOS [place] informa informa informa informa 2014 IS L tion in tion in tion in tion in 8:14 PM [facility] source source source source ardin data data data data [facility] RADIOLO GY REPORTP atient: Eliza TEIXEIRA NDREW W Acct: #[id number] Report: #[id number] #: [id number] DOS: 5 1927INS URANCE: [facility] [place] ORDER #:RAD [id number] 23LOCAT ION:ER : 993PROV IDERSAD MITTING : FAMILY: NONE,MD DANIELS G: EMMA BENITEZ OTHER:D ICTATIN G: RUFINO NEWMAN MDCPT CODE:[id number] EXAM:LL ERT - TIBIA FIBULA AP LAT RIGHTRE Q #:[id number] ASON FOR EXAM: InjuryR ROSEMARIE FOR VISIT: BROKEN LEG--HAWKINS RDIN--1 905 Sign ed *PROCED URE: TIBIA FIBULA AP LAT RIGHTCO MPARISO N: None.IN DICATIO NS: HIT LEGS WITH ANOTHER PLAYER DURING VOLLEYB ALL COMPLAI NS OF SEVERE MEDIAL KNEE ANDLOWE R LEG PAINFIN DINGS:T here is a tibial plateau fractur e. Please see the dictati on for the right knee exam. There is noevide nce of fractur e of the distal aspect of the tibia or fibula. The appears to be a benignf ibrous cortica l defect of the posteri or aspect of the distal tibia.C ONCLUSI ON:1. Tibial plateau fractur e is best seen on the exam. Below the proxima l tibia and fibula there isno other acute abnorma lity.STANTON NEWMAN MDElect cheryl garcia Signed and Approve d By: RUFINO NEWMAN MD on 07/12/20 15 at 20:14Bo kathi Certifi ed Radiolo gist.Un til signed, this is an unconfi rmed prelimi nary report that may contain errors and is subject to change. VÍCTOR:D :2013 KNEE 3 VIEWS RIGHT Observa Value Referen Units Interpr Notes Date tion ce etation Range TEXT MARINELLI No No No No Sep 7 DI[facility]NOS [place] informa informa informa informa 2015 IS L tion in tion in tion in tion in 8:13 PM [facility] source source source source LHardin data data data data [facility] RADIOLO GY REPORTP atient: Eliza TEIXEIRA NDREW W Acct: #[id number] Report: #[id number] #: [id number] DOS: 5 1927INS URANCE: [facility] [place] ORDER #:RAD [id number] 22LOCAT ION:ER : 993PROV IDERSAD MITTING : FAMILY: NONE,MD DANIELS G: EMMA BENITEZ OTHER:Mindy MOORE G: RUFINO NEWMAN MDCPT CODE:[id number] EXAM:KN RT - KNEE 3 VIEWS RIGHTRE Q #:[id number] ASON FOR EXAM: InjuryR ROSEMARIE FOR VISIT: BROKEN LEG--HAWKINS RDIN--1 905 Sign ed *PROCED URE: KNEE 3 VIEWS RIGHTCO MPARISO N: None.IN DICATIO NS: HIT LEGS WITH ANOTHER PLAYER DURING VOLLEYB ALL COMPLAI NS OF SEVERE MEDIAL KNEE ANDLOWE R LEG PAINFIN DINGS:T here is an oblique fractur e extendi ng from the lateral tibial plateau to the medial aspect of thetibi a. There is also elevati on of the plateau system with displac ement. There is a comminu tedirre gular portion of the medial tibial plateau . There is a minimal ly displac ed fibular fractur e.There is a large fat fluid level in the suprapa tellar bursa space consist ent with hemarth rosis.C ONCLUSI ON:1. Comminu george tibial plateau fractur e involvi ng both the lateral and medial plateau as well as aminima lly displac ed fibular head fractur e and a large joint effusio n consist ent with hemarth rosis.K QAMAR NEWMAN MDElect ronical ly Signed and Approve d By: RUFINO NEWMAN MD on 07/12/20 15 at 20:13Bo kathi Certifi ed Radiolo gist.Un til signed, this is an unconfi rmed prelimi nary report that may contain errors and is subject to change. SERKE:D :2012 Urinalysis, Routine (w/micros) Observa Value Referen Units Interpr Notes Date tion ce etation Range Specifi 1.017 1.003 - No No No May 04 c 1.030 informa informa informa 2015 [place] tion in tion in tion in 5:08 PM URN source source source data data data pH 8.0 5.0 - No No No Shar 30 Urine 8.0 informa informa informa 2015 tion in tion in tion in 5:08 PM source source source data data data Protein NEGATIV NEGATIV No Normal No Shar 30 , Urine E E informa informa 2015 tion in tion in 5:08 PM source source data data Glucose NEGATIV NEGATIV No Normal No Shar 30 , Urine E E informa informa 2015 tion in tion in 5:08 PM source source data data Ketone, NEGATIV NEGATIV No Normal No Shar 30 Urine E E informa informa 2015 tion in tion in 5:08 PM source source data data Urobili 0.2 0.2 - Units No No Shar 30 nogen 1.0 informa informa 2015 Urine tion in tion in 5:08 PM source source data data Bilirub NEGATIV NEGATIV No Normal No Shar 30 in, E E informa informa 2015 Urine tion in tion in 5:08 PM source source data data Blood, NEGATIV NEGATIV No Normal No Shar 30 Urine E E informa informa 2015 tion in tion in 5:08 PM source source data data Nitrite NEGATIV NEGATIV No Normal No Shar 30 s Urine E E informa informa 2015 tion in tion in 5:08 PM source source data data Crystal NONE NONE No Normal No Shar 30 s Urine informa informa 2014 tion in tion in 5:08 PM source source data data WBC, 0-4 0 - 4 PERHPF Normal No Shar 30 Urine informa 2015 tion in 5:08 PM source data RBC, NONE NONE PERHPF Normal No Shar 30 Urine SEEN SEEN informa 2014 tion in 5:08 PM source data Cast, NONE 0 - 1 PERLPF Normal No Shar 30 RBC, SEEN informa 2014 Urine tion in 5:08 PM source data Cast, 0-4 0 - 4 PERLPF Normal No Shar 30 Hyaline informa 2014 , Urine tion in 5:08 PM source data Epithel NONE FEW No Normal No Shar 30 ial informa informa 2015 Cells, tion in tion in 5:08 PM Ur source source data data Cast, NONE 0 - 1 PERLPF Normal No Shar 30 Granula SEEN informa 2014 r, Urin tion in 5:08 PM source data Bacteri NONE FEW No Normal No Shar 30 a, informa informa 2015 Urine tion in tion in 5:08 PM source source data data Crystal NONE NONE No Normal No May 04 Amt. informa informa 2015 Urine tion in tion in 5:08 PM source source data data Leukocy NEGATIV NEGATIV No Normal No May 04 te E E informa informa 2015 Esteras tion in tion in 5:08 PM e source source data data Color YELLOW YELLOW, No Normal No May 04 STRAW, informa informa 2015 WILFRED tion in tion in 5:08 PM source source data data Charact TURBID CLEAR No Abnorma No May 04 er informa l informa 2015 tion in tion in 5:08 PM source source data data MALE STI URINE PROFILE Observa Value Referen Units Interpr Notes Date tion ce etation Range Source Name: \.br\ CHLAMYD Not No No Normal No May 2 IA Detecte informa informa informa 2015 TRACHOM d tion in tion in tion in 9:41 AM ATIS source source source data data data NEISSER Not No No Normal No May 2 IA Detecte informa informa informa 2015 GONORRH d tion in tion in tion in 9:41 AM EA source source source data data data UREAPLA Not No No Normal No May 2 SMA Detecte informa informa informa 2015 UREALYT d tion in tion in tion in 9:41 AM ICUM source source source data data data MYCOPLA Not No No Normal No May 2 SMA Detecte informa informa informa 2015 GENITAL d tion in tion in tion in 9:41 AM IUM source source source data data data TRICHOM Not No No Normal CHLAMYD May 2 ONAS Detecte informa informa IA 2015 VAGINAL d tion in tion in TRACHOM 9:41 AM IS source source ATIS data data (1,3,4) NEISSER IA GONORRH EA (1,3,4) UREAPLA SMA UREALYT ICUM (1,2,3, 4)MYCOP LASMA GENITAL IUM (1,2,3, 4)TRICH OMONAS VAGINAL IS (1,3,4) (1)This test is an in vitro test for the detecti on of sexuall y transmi ttedinf ections (STIs) in clinica l specime ns. The test utilize samplif ication of target DNA by the Polymer ase Chain Reactio n (PCR)ba sed on dual priming oligonu cleotid e technol ogy and detects STI DNA.(2) Mycopla sma genital ium is a causati ve agent of Nongono ccocal urethri tis(ANN ) in men and cervici tis in women. Ureapla sma spp. is associa tedwith ANN in men.(3) This test was evaluat ed and its perform ance charact eristic s determi nedby [facility]. It has not been cleared or approve d bythe U.S. Food and Drug Adminis tration . The FDA has determi lucille thatsuc h clearan ce or approva l is not necessa ry. [facility] certifi ed under the Clinica l Laborat ory Improve ment Act of 1987(CL [place]) as qualifi ed to perform high complex ity clinica l testing .(4)Res ults should be interpr eted togethe r with past and current clinica land laborat ory data. Comprehensive Metabolic Panel Observa Value Referen Units Interpr Notes Date tion ce etation Range Total 7.1 5.9 - g/dL No No May 01 Protein 8.4 informa informa 2014 tion in tion in 5:04 PM source source data data Albumin 4.9 3.5 - g/dL No No May 01 5.2 informa informa 2014 tion in tion in 5:04 PM source source data data Globuli 2.2 1.7 - g/dL No No May 01 n 3.7 informa informa 2014 tion in tion in 5:04 PM source source data data A/G 2.2 1.1 - No No No May 01 Ratio 2.9 informa informa informa 2014 tion in tion in tion in 5:04 PM source source source data data data Sodium 141 133 - mmol/L No No May 01 145 informa informa 2014 tion in tion in 5:04 PM source source data data Potassi 4.3 3.3 - mmol/L No No May 01 um 5.3 informa informa 2014 tion in tion in 5:04 PM source source data data Chlorid 96 96 - mmol/L No No May 01 e 108 informa informa 2014 tion in tion in 5:04 PM source source data data CO2 23 22 - 29 mmol/L No No May 01 informa informa 2014 tion in tion in 5:04 PM source source data data BUN 13 6 - 20 mg/dL No No May 01 informa informa 2014 tion in tion in 5:04 PM source source data data Creatin 1.10 0.90 - mg/dL No No May 01 ine 1.30 informa informa 2014 tion in tion in 5:04 PM source source data data e-GFR 85 >60 mL/min No No May 01 informa informa 2014 tion in tion in 5:04 PM source source data data e-GFR, 103 >60 mL/min No No May 01 informa informa 2014 tion in tion in 5:04 PM Cecilia source source n data data BUN/Cre 11.8 10.0 - No No No May 01 at 28.0 informa informa informa 2014 Ratio tion in tion in tion in 5:04 PM source source source data data data Calcium 10.1 8.6 - mg/dL No No May 01 10.4 informa informa 2014 tion in tion in 5:04 PM source source data data Bilirub 0.4 <1.2 mg/dL No No May 01 in, informa informa 2014 Total tion in tion in 5:04 PM source source data data Alk 61 40 - U/L No No May 01 Phos 156 informa informa 2014 tion in tion in 5:04 PM source source data data AST 60 <40 U/L High No May 01 inform2014 tion in 5:04 PM source data ALT 64 <41 U/L High No May 01 informa 2014 tion in 5:04 PM source data Glucose <20 70 - 99 mg/dL Abnorma NOTE: May 01 l The 2014 result 5:04 PM for GLUCOSE has been confirm ed by repeat analysi s.NOTE: Glucose result may be due to gross hemolys is and/or imprope r specime nhandli ng. * MESSAGES * Observa Value Referen Units Interpr Notes Date tion ce etation Range * SEE SEE No Normal NOTE: May 01 MESSAGE BELOW BELOW informa The 2015 S * tion in test(s) 5:04 PM source data request ed require serum that has been separat ed fromthe cells. We receive d either an un-spun SST (serum separat or tube)or a plain RED-TOP tube unaccep table for routine electrochemist ry testing .Any results obtaine d on serum not properl y separat ed will produce results which must be careful ly evaluat ed. CT ABD/PEL W/O CONTRAST Observa Value Referen Units Interpr Notes Date tion ce etation Range TEXT THE No No No No Sep DIAGNOS MEDICAL informa informa informa informa 2013 IS tion in tion in tion in tion in 3:35 PM [facility]\ source source source source .br\Dep data data data data artment of Diagnos tic Imaging \.br\Pa tient: Eliza TEIXEIRA [facility] Unit #: [id number] Ord Doctor: DUKE HENDERSON M.D.\.b r\ [id number] Date of Exam: 4\.br\D OB: 993 Age: 18 Sex: M Room/Be d: Locatio n: ER\.br\ Adm: 4 Patient Status: REG ER\.br\ Clinica l History : ACUTE ABDOMIN AL PAIN\.b r\Exam # [id number] 98\.br\ Type/Ex am: COMPUTE RIZED TOMOGRA PHY/ CT ABD/PEL W/O CONTRAS T\.br\C urrent Report Status: Signed\ .br\HIS TORY: Abdomin al pain\.b r\TECHN IQUE: Axial images were obtaine d from the lung bases to the symphys is\.br\ pubis, noncont rast, with multipl kimberlee reconst ruction s.\.br\ FINDING S: The lung bases are clear. The liver, spleen, pancrea s, and\.br \kidney s unremar kable. No radiopa que stones or hydrone phrosis . No masses, \.br\no periton eal fluid or pneumop eritone um. The stomach is markedl y distend ed\.br\ with food and fluid materia l. No small bowel abnorma lities, the colon\. br\unre markabl e.\.br\ Images through the pelvis show fecal distens ion of the rectosi gmoid colon.\ .br\The small bowel loops normal. The cecum is grossly normal. The appendi x\.br\c annot be identif ied, no mass or inflamm atory changes of the right lower\. br\quad rant.\. br\Urin kelly bladder is not distend ed.\.br \IMPRES CAMERON:\. br\1. No acute abdomin al or pelvic patholo gy.\.br \2. No urinary tract calculi or obstruc tive uropath y.\.br\ 3.. Fluid distens ion of the stomach without small bowel or colon abnorma lities. \.br\Re ported By: BRIAN TURNER M.D.\.b r\Betty d By: BRIAN TURNER M.D.\.b r\Betty d Date/Ti me: [phone]
--- OUTSIDE RECORDS SUMMARY | 2017-04-02 19:26 | External Medical Summary Rpt ---
[...] data [Presen [place] ce] in [address], specime [place], n by [place] Probe & [id number] target 69Lab Directo amplifi r: cation Vincent method Kenneth cohen PhD, Phone: [phone] Urinalysis dipstick W Reflex Microscopic panel [...] source source data data data data CHART [id number] No No No No Feb 17 NUMBER [...] source source data data data data CHART [id number] No No No No Feb 17 NUMBER [...] data [facility] G[facility] REPORTP atient: Eliza TEIXEIRA NDREW W Acct: #[id number] Report: #[id number] #: [id number] DOS: 5 2044INS [facility] [place] ORDER #:[id number] 48LOCAT ION:ER : 993PROV IDERSAD MITTING : FAMILY: NONE,MD BACHIN G: MERVIN PANDYA AD OTHER:D ICTATIN G: RUFINO NEWMAN MDCPT CODE:[id number] EXAM:LE WO - CT LOWER EXTREMI TY wo CONTRAS TREQ #:[id number] ASON FOR EXAM:RE ASON FOR VISIT: BROKEN [...] data data data data [facility] RADIOLO GY REPORTP atient: Eliza TEIXEIRA NDREW W Acct: #[id number] Report: #[id number] #: [id number] DOS: 5 1927INS URANCE: [facility] [place] ORDER #:RAD [id number] 23LOCAT ION:ER : 993PROV IDERSAD MITTING : FAMILY: NONE,MD DANIELS G: EMMA BENITEZ OTHER:D ICTATIN G: RUFINO NEWMAN MDCPT CODE:[id number] EXAM:LL ERT - TIBIA FIBULA AP LAT RIGHTRE Q #:[id number] ASON FOR EXAM: InjuryR ROSEMARIE FOR VISIT: [...] data data data data [facility] RAD[facility]OLO GY REPORTP atient: Eliza TEIXEIRA NDREW W Acct: #[id number] Report: #[id number] #: [id number] DOS: 5 1927INS URANCE: [facility] ORDER #:RAD [id number] 22LOCAT ION:ER : 993PROV IDERSAD MITTING : FAMILY: NONE,MD DANIELS G: EMMA BENITEZ OTHER:Mindy MOORE G: RUFINO NEWMAN MDCPT CODE:[id number] EXAM:KN RT - KNEE 3 VIEWS RIGHTRE Q #:[id number] ASON FOR EXAM: InjuryR ROSEMARIE FOR VISIT: [...] 04 c 1.030 informa informa informa 2015 U[place]es tion in tion in tion in 5:08 [...] plain RED-TOP tube unaccep table for routine inorganic chemistry professor ry testing .Any results obtaine d on [...] Diagnos tic Imaging \.br\Pa tient: Eliza TEIXEIRA [facility] [place] Unit #: [id number] Ord Doctor: DUKE HENDERSON M.D.\.b r\ [id number] Date of Exam: 4\.br\D OB: 993 Age: [...] TURNER M.D.\.b r\Betty d Date/Ti me: 4 [phone]
== END 2017-03-24 15:15 | disposition home or self-care (01) ==
LOC: ER 00:54 → 2ND 01:33 → ER 01:33 → 2ND 02:07
PROVIDERS: Emergency Medicine; Surgery
PROC: 0DTJ4ZZ Resection of Appendix, Percutaneous Endoscopic Approach (ICD-10-PCS; principal; 2017-03-24 07:30)
DX: K35.80 Unspecified acute appendicitis (principal)
CPT/HCPCS: G0378; J0131; J2405; J2710